=== PATIENT | female | born 1950 | race Caucasian/White ===

== ENCOUNTER 2022-09-02 09:05 | Day surgery (SDC) | payer MEDICARE, BC ==
[~2022-09-02 09:05] MED LIST: Lactated Ringers 1,000 ML IV SCH; Propofol 200 MG/20 ML SDV ONE; Sodium Chloride 0.9% 10 ML Syringe FLUSH PRN; Sodium Chloride 0.9% 2.5 ML Syringe FLUSH PRN; Sodium Chloride 0.9% 20 ML SDV IV PRN
[2022-09-02] MEDS ORDERED: fentaNYL 100 MCG/2 ML SDV ONE (09:33)
[2022-09-02] MEDS ORDERED: Lidocaine 2% 5 ML SDV ONE (09:33)
[2022-09-02 11:54] VITALS: PULSE 63
[2022-09-02 14:54] VITALS: BP 109/54
== END 2022-09-02 12:20 | disposition home or self-care (01) ==
LOC: MW.SDS 09:05
PROVIDERS: ATTEND Surgery
DX: K21.9 Gastro-esophageal reflux disease without esophagitis (principal); K59.09 Other constipation; K44.9 Diaphragmatic hernia without obstruction or gangrene; F41.9 Anxiety disorder, unspecified; F32.A Depression, unspecified; Z79.899 Other long term (current) drug therapy; Z87.891 Personal history of nicotine dependence
CPT/HCPCS: 43239; 45380; J2704; J3010; J7120; J3490

== ENCOUNTER 2023-10-10 09:16 | Emergency (ER) | payer MEDICARE, BC ==
[2023-10-10 09:35] VITALS: BP 113/71; PULSE 67
[2023-10-10] MEDS: Lidocaine 2% Viscous Solution 15 ML UD PO PRN (09:57)
== END 2023-10-10 10:09 | disposition home or self-care (01) ==
LOC: MW.ED 09:16
DX: R21 Rash and other nonspecific skin eruption (principal); Z75.8 Other problems related to medical facilities and other health care; Z79.899 Other long term (current) drug therapy
CPT/HCPCS: 99282; A9270; 99283